=== PATIENT | male | born 1975 | race Caucasian/White ===

== ENCOUNTER 2019-05-17 05:35 | Day surgery (SDC) | payer OTHER ==
[2019-05-17] MEDS ORDERED: ULTRACET PO (10:17)
[2019-05-17] MEDS ORDERED: NEURONTIN300 MG PO (10:18)
[2019-05-17] MEDS ORDERED: COLACE100 MG PO (10:21)
== END 2019-05-17 12:25 | disposition home or self-care (01) ==
LOC: CIR.AMB 05:35
DX: K40.91 Unilateral inguinal hernia, without obstruction or gangrene, recurrent (principal)